=== PATIENT | female | born 1945 | race Caucasian/White ===

== ENCOUNTER → 2018-07-03 | Outpatient (CLI) | payer MEDICARE ==
--- NOTE | 2018-07-03 09:01 | US ---
EXAMINATION TYPE: US abdomen complete DATE OF EXAM: 07/03/2018 COMPARISON: NONE CLINICAL HISTORY: K76.9 Liver disease. Bloating, NPO EXAM MEASUREMENTS: Liver Length: 13.6 cm Gallbladder Wall: 0.2 cm CBD: 0.4 cm Spleen: 10.2 cm Right Kidney: 10.5 x 4.9 x 4.5 cm Left Kidney: 10.1 x 3.6 x 3.4 cm Pancreas: Appears echogenic in appearance Liver: wnl Gallbladder: wnl Evidence for sonographic Anguiano's sign: neg CBD: wnl Spleen: wnl Right Kidney: Cystic appearing lesion in mid pole of renal sinus - 1.1 x 1.0 x 0.9 cm Left Kidney: wnl Upper IVC: wnl Abd Aorta: No AAA visualized The liver is homogenous. The intrahepatic portion of the IVC and proximal abdominal aorta are within normal limits. There is no evidence of cholelithiasis. Common bile duct is unremarkable. The visu alized portions of the pancreas are homogenous. The spleen is unremarkable. Kidneys are symmetric a nd free of hydronephrosis. IMPRESSION: 1. The liver remains sonographically homogeneous despite the patient's underlying known hepatocellula r disease. 2. Benign-appearing right renal cyst.
== END | disposition home or self-care (01) ==
LOC: RADUSWWP 07:44
PROVIDERS: ATTEND Family Medicine
DX: K76.9 Liver disease, unspecified (principal)
CPT/HCPCS: 76700